=== PATIENT | female | born 1975 | race Caucasian/White ===

== ENCOUNTER 2017-08-15 13:05 | Emergency (ER) | payer OTHER ==
[~2017-08-15] VITALS: Ht 160 cm; Wt 90.9 kg
[2017-08-15] MEDS ORDERED: VENL50TA44 PO (14:09)
[2017-08-15 18:24] VITALS: BP 135/81
== END 2017-08-15 18:52 | disposition home or self-care (01) ==
LOC: EMS 13:09
DX: F32.9 Major depressive disorder, single episode, unspecified (principal); J45.909 Unspecified asthma, uncomplicated; Z88.5 Allergy status to narcotic agent
CPT/HCPCS: 99285